=== PATIENT | male | born 1945 | race African-American/Black ===

== ENCOUNTER 2017-07-12 02:39 | Inpatient (IN) | payer MEDICARE, OTHER, MEDICAID ==
[~2017-07-12] VITALS: Ht 175.3 cm; Wt 49.0 kg
[2017-07-12] VITALS (8 sets, daily range): BP systolic 112–148; BP diastolic 55–98
[2017-07-12] MEDS ORDERED: SODIUM CHLORIDE 0.9% 1,000 ML IV ONE (02:57)
[2017-07-12] MEDS ORDERED: ALBUTEROL (0.083%) 2.5MG/3ML NEB HHN STA (02:57)
[2017-07-12] MEDS ORDERED: IPRATROPIUM BROMIDE (0.02%) 0.5MG/2.5ML NEB HHN STA (02:57)
[2017-07-12] MEDS ORDERED: METHYLPREDNISOLONE SOD SUCC 125 MG/2 ML VIAL IV STA (02:57)
[2017-07-12] MEDS ORDERED: ASPIRIN 81MG TABLET PO ONE (03:00)
[2017-07-12] MEDS ORDERED: LABETALOL HCL 20MG/4ML CARPUJECT IV ONE (03:00)
[2017-07-12] MEDS ORDERED: MAGNESIUM 2 G PREMIX 50 ML IV ONE (03:00)
[2017-07-12] MEDS ORDERED: NITROGLYCERIN OINT 1GM/INCH UDPKT TD ONE (03:00)
[2017-07-12] MEDS ORDERED: LEVOFLOXACIN 250MG TABLET PO ONE (03:15)
[2017-07-12 04:02] LABS: BASOPHILS % 0.2 % (0.0-2.0); EOSINOPHILS % 0.1 % (0.0-5.0); HEMATOCRIT. 38.1 % (42.0-52.0); HEMOGLOBIN. 12.5 g/dL (14.0-18.0); LYMPHOCYTES % 18.1 % (20.0-50.0); MEAN CORPUSCULAR HEMOGLOBIN 29.1 pg (28.0-32.0); MEAN CORPUSCULAR VOLUME 88.7 fL (80.0-94.0); MEAN PLATELET VOLUME 8.8 fl (7.4-10.4); MONOCYTES % 6.7 % (2.0-8.0); NEUTROPHILS % 74.9 % (40.0-76.0); PLATELET 184 x1000/uL (130-400); RED BLOOD CELL COUNT 4.29 mill/uL (4.7-6.1); RED CELL DISTRIBUTION WIDTH 16.5 % (11.6-14.6)
[2017-07-12 04:11] LABS: BG BASE EXCESS -3.8 mmol/L (-2.0-2.0); BG CARBOXYHEMOGLOBIN 0.7 % (0.5-1.5); BG DEOXYHEMOGLOBIN 0.7 % (0.0-5.0); BG FRACTION INSPIRED OXYGEN 100; BG HCO3 ACT 24.4 mmol/L (22.0-26.0); BG METHEMOGLOBIN 0.5 % (0.0-1.5); BG OXYGEN SATURATION 99.3 % (92.0-98.5); BG OXYHEMOGLOBIN 98.1 % (94.0-97.0); BG PCO2 58.3 mmHg (35.0-45.0); BG PO2 255.3 mmHg (75.0-100.0); BG SAMPLE SITE RIGHT RADIAL; BG TOTAL HEMOGLOBIN 13.7 g/dL (12.0-18.0); BG VENT MODE MASK - NRB
[2017-07-12 04:15] LABS: INR 1.2; PARTIAL THROMBOPLASTIN TIME 26.3 sec (23.4-31.0); PROTHROMBIN TIME 12.7 sec (9.4-11.6)
[2017-07-12 04:22] LABS: D-DIMER 6.85 mg/L FEU (<0.50)
[2017-07-12 04:27] LABS: CARBON DIOXIDE 24 mEq/L (21-32); CHLORIDE 109 mEq/L (98-107); ETHANOL BLOOD < 10 mg/dL
[2017-07-12 04:51] LABS: TROPONIN I 0.83 ng/mL (0.00-0.04)
[2017-07-12] MEDS ORDERED: LABETALOL 5MG/ML SYR 20 MG/4 ML SYRINGE IV NR (05:00)
[2017-07-12] MEDS ORDERED: SODIUM CHLORIDE 0.9% 1000ML BAG (SEPSIS BOLUS) IV NR (05:15)
[2017-07-12] MEDS ORDERED: IOHEXOL-350 100 ML BOTTLE ONE (06:41)
[2017-07-12 07:10] LABS: *AMPHETAMINES SCREEN URINE NEGATIVE (NEGATIVE); *BARBITURATES SCREEN URINE NEGATIVE (NEGATIVE); *BENZODIAZEPINES SCREEN URINE NEGATIVE (NEGATIVE); *COCAINE SCREEN URINE NEGATIVE (NEGATIVE); CANNABINOID URINE SCREEN NEGATIVE (NEGATIVE); METHADONE URINE SCREEN NEGATIVE (NEGATIVE); OPIATES URINE SCREEN PRESUMTIVE POSITIVE (NEGATIVE); PHENCYCLIDINE URINE SCREEN NEGATIVE (NEGATIVE)
[2017-07-12] MEDS ORDERED: ONDANSETRON HCL 4MG/2ML VIAL IV PRN (09:30)
[2017-07-12] MEDS ORDERED: IPRATROPIUM/ALBUTEROL 0.5-3(2.5)MG/3ML NEB INH PRN (09:30)
[2017-07-12] MEDS ORDERED: NA PHOS,M-B/NA PHOS,DI-BA ENEMA 118ML PR PRN (09:30)
[2017-07-12] MEDS ORDERED: DOCUSATE SODIUM 100MG CAPSULE PO PRN (09:30)
[2017-07-12] MEDS ORDERED: GUAIFENESIN 200MG/10ML SUGAR FREE UDC PO PRN (09:30)
[2017-07-12] MEDS ORDERED: ACETAMINOPHEN 325MG TABLET PO PRN (09:30)
[2017-07-12] MEDS ORDERED: ACETAMINOPHEN 650MG SUPP PR PRN (09:30)
[2017-07-12] MEDS ORDERED: MAGNESIUM/ALUMINUM HYDROXIDE/SIMETHICONE 30ML UDC PO PRN (09:30)
[2017-07-12] MEDS ORDERED: ACETAMINOPHEN 650MG/20.3ML UDC GT PRN (09:30)
[2017-07-12] MEDS: HYDROCODONE/ACETAMINOPHEN 5/325MG TABLET PO PRN ×4 (09:52→21:57)
[2017-07-12] MEDS: ENOXAPARIN 40MG/0.4ML SYR SUBCUT SCH (10:00)
[2017-07-12] MEDS ORDERED: TIOT4MIS3 IH (10:18)
[2017-07-12 10:36] LABS: CLARITY URINE CLOUDY (CLEAR); COLOR URINE YELLOW (YELLOW); GLUCOSE URINE NEGATIVE (NEGATIVE); KETONES URINE NEGATIVE (NEGATIVE); LEUKOCYTE ESTERASE URINE NEGATIVE (NEGATIVE); NITRITE URINE NEGATIVE (NEGATIVE); OCCULT BLOOD URINE 3+ (NEGATIVE); PROTEIN URINE 2+ (NEGATIVE); SPECIFIC GRAVITY URINE 1.022 (1.005-1.030)
[2017-07-12] MEDS ORDERED: GABA-290 PO (10:39)
[2017-07-12] MEDS ORDERED: DUR12 TP (10:39)
[2017-07-12] MEDS ORDERED: FENTANYL TP SCH (11:00)
[2017-07-12] MEDS ORDERED: MEDICATION NOT ON FORMULARY EA (Gabapentin 600 MG) PO SCH (11:00)
[2017-07-12] MEDS: METHYLPREDNISOLONE SOD SUCC 125 MG/2 ML VIAL IV SCH ×3 (11:22→23:49)
[2017-07-12] MEDS: IPRATROPIUM/ALBUTEROL 0.5-3(2.5)MG/3ML NEB INH SCH ×2 (12:20→21:49)
[2017-07-12] MEDS ORDERED: STIOLTO INH (12:54)
[2017-07-12] MEDS: SODIUM CHLORIDE 0.9% INJ 3ML FLUSH IVF SCH ×2 (15:08→23:50)
[2017-07-12 16:12] LABS: TROPONIN I 0.89 ng/mL (0.00-0.04)
[2017-07-12 16:58] LABS: *AMPHETAMINES SCREEN URINE NEGATIVE (NEGATIVE); *BARBITURATES SCREEN URINE NEGATIVE (NEGATIVE); *BENZODIAZEPINES SCREEN URINE NEGATIVE (NEGATIVE); *COCAINE SCREEN URINE NEGATIVE (NEGATIVE); CANNABINOID URINE SCREEN NEGATIVE (NEGATIVE); METHADONE URINE SCREEN NEGATIVE (NEGATIVE); OPIATES URINE SCREEN PRESUMTIVE POSITIVE (NEGATIVE); PHENCYCLIDINE URINE SCREEN NEGATIVE (NEGATIVE)
[2017-07-12] MEDS: GABAPENTIN 300MG CAPSULE PO SCH (17:02)
[2017-07-12] MEDS: ASPIRIN 81MG TABLET PO SCH (17:54)
[2017-07-12 23:35] LABS: TROPONIN I 0.65 ng/mL (0.00-0.04)
[2017-07-13] VITALS (12 sets, daily range): BP systolic 120–141; BP diastolic 59–98
[2017-07-13] MEDS: IPRATROPIUM/ALBUTEROL 0.5-3(2.5)MG/3ML NEB INH SCH ×5 (02:25→16:00)
[2017-07-13] MEDS: HYDROCODONE/ACETAMINOPHEN 5/325MG TABLET PO PRN ×2 (03:30→08:43)
[2017-07-13] MEDS: METHYLPREDNISOLONE SOD SUCC 125 MG/2 ML VIAL IV SCH ×4 (05:03→23:31)
[2017-07-13] MEDS: SODIUM CHLORIDE 0.9% INJ 3ML FLUSH IVF SCH ×3 (05:03→22:00)
[2017-07-13] MEDS: ASPIRIN 81MG TABLET PO SCH (08:37)
[2017-07-13] MEDS: STIOLTO RESPIMAT INHALER PO SCH (08:38)
[2017-07-13] MEDS: GABAPENTIN 300MG CAPSULE PO SCH ×2 (08:38→17:35)
[2017-07-13] MEDS: ENOXAPARIN 40MG/0.4ML SYR SUBCUT SCH (08:39)
[2017-07-13 08:42] LABS: CARBON DIOXIDE 30 mEq/L (21-32); CHLORIDE 105 mEq/L (98-107)
[2017-07-13 09:00] LABS: BG BASE EXCESS -1.6 mmol/L (-2.0-2.0); BG CARBOXYHEMOGLOBIN 0.8 % (0.5-1.5); BG DEOXYHEMOGLOBIN 11.2 % (0.0-5.0); BG FRACTION INSPIRED OXYGEN 32; BG HCO3 ACT 22.4 mmol/L (22.0-26.0); BG METHEMOGLOBIN 0.2 % (0.0-1.5); BG OXYGEN SATURATION 88.7 % (92.0-98.5); BG OXYHEMOGLOBIN 87.8 % (94.0-97.0); BG PCO2 35.4 mmHg (35.0-45.0); BG PH 7.419 (7.350-7.450); BG SAMPLE SITE RIGHT BRACHIAL; BG TOTAL HEMOGLOBIN 12.7 g/dL (12.0-18.0); BG VENT MODE NASAL CANNULA
[2017-07-13] MEDS ORDERED: ASPIRIN 81MG TABLET PO SCH (09:00)
[2017-07-13] MEDS: ENOXAPARIN 60MG/0.6ML SYR SUBCUT SCH ×2 (11:15→22:38)
[2017-07-13] MEDS ORDERED: ACETAMINOPHEN WITH CODEINE 300/30MG TABLET PO PRN (12:15)
[2017-07-13 12:17] LABS: T4 FREE 1.18 ng/dL (0.76-1.46)
[2017-07-13] MEDS: CLOPIDOGREL 75MG TABLET PO SCH (12:17)
[2017-07-13 17:41] LABS: CREATINE KINASE MB FRACTION 5.6 ng/mL (0.5-3.6); TROPONIN I 0.31 ng/mL (0.00-0.04)
[2017-07-13 18:55] LABS: HEMATOCRIT. 36.5 % (42.0-52.0); LYMPHOCYTES % 12.3 % (20.0-50.0); MEAN CORPUSCULAR HEMOGLOBIN 28.9 pg (28.0-32.0); MONOCYTES % 4.6 % (2.0-8.0); NEUTROPHILS % 83.1 % (40.0-76.0); PLATELET 175 x1000/uL (130-400); RED BLOOD CELL COUNT 4.15 mill/uL (4.7-6.1); RED CELL DISTRIBUTION WIDTH 16.3 % (11.6-14.6)
[2017-07-13] MEDS: DIPHENHYDRAMINE 50MG/ML VIAL IV PRN (20:09)
[2017-07-13] MEDS ORDERED: ENOXAPARIN 40MG/0.4ML SYR SUBCUT SCH (21:00)
[2017-07-14] VITALS (25 sets, daily range): BP systolic 100–210; BP diastolic 48–132
[2017-07-14 02:21] LABS: CREATINE KINASE MB FRACTION 3.5 ng/mL (0.5-3.6); TROPONIN I 0.2 ng/mL (0.00-0.04)
[2017-07-14] MEDS: METHYLPREDNISOLONE SOD SUCC 125 MG/2 ML VIAL IV SCH ×3 (05:01→21:32)
[2017-07-14] MEDS: SODIUM CHLORIDE 0.9% INJ 3ML FLUSH IVF SCH ×3 (05:01→21:32)
[2017-07-14 07:25] LABS: CREATINE KINASE MB FRACTION 3.3 ng/mL (0.5-3.6); TROPONIN I 0.17 ng/mL (0.00-0.04)
[2017-07-14] MEDS: IPRATROPIUM/ALBUTEROL 0.5-3(2.5)MG/3ML NEB INH SCH ×3 (08:37→20:18)
[2017-07-14] MEDS: STIOLTO RESPIMAT INHALER PO SCH ×2 (09:00→17:01)
[2017-07-14] MEDS: CLOPIDOGREL 75MG TABLET PO SCH (09:00)
[2017-07-14] MEDS: GABAPENTIN 300MG CAPSULE PO SCH ×2 (09:00→17:00)
[2017-07-14] MEDS: ASPIRIN 81MG TABLET PO SCH (09:00)
[2017-07-14] MEDS ORDERED: CLOPIDOGREL 75MG TABLET PO SCH (09:15)
[2017-07-14] MEDS ORDERED: LIDOCAINE HCL 1% 20ML VIAL (Pyxis) INJ ONE (10:04)
[2017-07-14] MEDS ORDERED: IOHEXOL-300 100 ML BOTTLE ONE (10:05)
[2017-07-14] MEDS ORDERED: FENTANYL CITRATE/PF 50MCG/ML 2ML VIAL ONE (10:05)
[2017-07-14] MEDS ORDERED: MIDAZOLAM HCL 2 MG/2 ML VIAL ONE (10:05)
[2017-07-14] MEDS ORDERED: ACETAMINOPHEN 325MG TABLET PO PRN (11:00)
[2017-07-14] MEDS ORDERED: ATROPINE SULFATE 1MG/10ML SYR IV PRN (11:00)
[2017-07-14] MEDS ORDERED: ACETAMINOPHEN WITH CODEINE 300/30MG TABLET PO PRN (11:30)
[2017-07-14 12:16] LABS: BASOPHILS % 0.2 % (0.0-2.0); HEMATOCRIT. 38.8 % (42.0-52.0); HEMOGLOBIN. 12.7 g/dL (14.0-18.0); LYMPHOCYTES % 16.6 % (20.0-50.0); MEAN CORPUSCULAR HEMOGLOBIN 29.1 pg (28.0-32.0); MEAN CORPUSCULAR VOLUME 89.2 fL (80.0-94.0); MEAN PLATELET VOLUME 9.8 fl (7.4-10.4); MONOCYTES % 3.4 % (2.0-8.0); NEUTROPHILS % 79.8 % (40.0-76.0); PLATELET 170 x1000/uL (130-400); RED BLOOD CELL COUNT 4.35 mill/uL (4.7-6.1); RED CELL DISTRIBUTION WIDTH 16.6 % (11.6-14.6)
[2017-07-14 12:22] LABS: CARBON DIOXIDE 30 mEq/L (21-32); CHLORIDE 105 mEq/L (98-107)
[2017-07-14] MEDS ORDERED: FENTANYL 75MCG/HR PATCH TOP SCH (18:00)
[2017-07-14] MEDS ORDERED: BUDESONIDE 0.5MG/2ML NEB HHN SCH (18:00)
[2017-07-14] MEDS ORDERED: ALBU18HF2 IH (20:13)
[2017-07-14] MEDS ORDERED: P50 PO (20:13)
[2017-07-14] MEDS ORDERED: FLUT1DIS3 IH (20:14)
[2017-07-14] MEDS ORDERED: CLOP75TA16 PO (20:15)
[2017-07-14] MEDS ORDERED: ASPI-1160 PO (20:15)
[2017-07-14] MEDS: DIPHENHYDRAMINE 50MG/ML VIAL IV PRN (20:19)
[2017-07-15] VITALS (10 sets, daily range): BP systolic 102–129; BP diastolic 68–86
[2017-07-15] MEDS: IPRATROPIUM/ALBUTEROL 0.5-3(2.5)MG/3ML NEB INH SCH (01:14)
[2017-07-15] MEDS: SODIUM CHLORIDE 0.9% INJ 3ML FLUSH IVF SCH ×2 (05:57→14:56)
[2017-07-15] MEDS: METHYLPREDNISOLONE SOD SUCC 125 MG/2 ML VIAL IV SCH (05:57)
[2017-07-15] MEDS ORDERED: LIDOCAINE HCL/PF 1% 2ML VIAL ONE (06:00)
[2017-07-15 06:25] LABS: LYMPHOCYTES % 13.1 % (20.0-50.0); MEAN CORPUSCULAR HEMOGLOBIN 29.2 pg (28.0-32.0); MEAN CORPUSCULAR VOLUME 87.4 fL (80.0-94.0); MEAN PLATELET VOLUME 9.2 fl (7.4-10.4); MONOCYTES % 4.3 % (2.0-8.0); NEUTROPHILS % 82.6 % (40.0-76.0); PLATELET 169 x1000/uL (130-400); RED BLOOD CELL COUNT 4.12 mill/uL (4.7-6.1); RED CELL DISTRIBUTION WIDTH 16.2 % (11.6-14.6)
[2017-07-15 06:46] LABS: CARBON DIOXIDE 33 mEq/L (21-32); CHLORIDE 101 mEq/L (98-107)
[2017-07-15] MEDS: GABAPENTIN 300MG CAPSULE PO SCH ×2 (08:33→17:00)
[2017-07-15] MEDS: ASPIRIN 81MG TABLET PO SCH (08:33)
[2017-07-15] MEDS: CLOPIDOGREL 75MG TABLET PO SCH (08:33)
[2017-07-15] MEDS ORDERED: ASPIRIN 81MG TABLET PO SCH (09:00)
[2017-07-15] MEDS ORDERED: PREDNISONE 20MG TABLET PO SCH (18:00)
== END 2017-07-15 19:55 | disposition home or self-care (01) | DRG 286 ==
LOC: ER 02:39 → 5EST 03:51 → ENRESERV 06:26 → 5EST 10:31
PROVIDERS: ADMIT Family Medicine; ATTEND Family Medicine
PROC: 5A09357 Assistance with Respiratory Ventilation, Less than 24 Consecutive Hours, Continuous Positive Airway Pressure (ICD-10-PCS; 2017-07-12)
PROC: 4A023N7 Measurement of Cardiac Sampling and Pressure, Left Heart, Percutaneous Approach (ICD-10-PCS; principal; 2017-07-14)
PROC: B2111ZZ Fluoroscopy of Multiple Coronary Arteries using Low Osmolar Contrast (ICD-10-PCS; 2017-07-14)
DX: I11.0 Hypertensive heart disease with heart failure (principal); J96.01 Acute respiratory failure with hypoxia; J96.02 Acute respiratory failure with hypercapnia; J18.9 Pneumonia, unspecified organism; E87.2 Acidosis; J44.0 Chronic obstructive pulmonary disease with (acute) lower respiratory infection; J44.1 Chronic obstructive pulmonary disease with (acute) exacerbation; I16.1 Hypertensive emergency; I25.10 Atherosclerotic heart disease of native coronary artery without angina pectoris; I50.31 Acute diastolic (congestive) heart failure; E11.9 Type 2 diabetes mellitus without complications; G83.21 Monoplegia of upper limb affecting right dominant side; R91.1 Solitary pulmonary nodule; E03.9 Hypothyroidism, unspecified; E78.5 Hyperlipidemia, unspecified; G89.29 Other chronic pain; Z86.73 Personal history of transient ischemic attack (TIA), and cerebral infarction without residual deficits; Z74.01 Bed confinement status
CPT/HCPCS: 36415; 36600; 71010; 71275; 76770; 80048; 80053; 80061; 80305; 81001; 82375; 82550; 82553; 82805; 83036; 83605; 83880; 84439; 84443; 84484; 85025; 85379; 85610; 85730; 87040; 87086; 93005; 93306; 93458; 94640; 94660; 94664; 96365; 96366; 96375; 99291; C1760; C1769; C1887; C1893; G0482; J1200; J1644; J1650; J2250; J2930; J3010; J3475; J3490; J7030; J7611; J7620; J7626; Q9967